=== PATIENT | male | born 1935 | race Caucasian/White ===

== ENCOUNTER 2020-06-23 11:45 | Inpatient (IN) | payer MEDICARE, OTHER ==
[2020-06-23] VITALS (8 sets, daily range): BP systolic 133–160; BP diastolic 86–96
[~2020-06-23] VITALS: Ht 180 cm; Wt 123.2 kg
[2020-06-23] MEDS ORDERED: ONDANSETRON 4 MG (ZOFRAN) ORAL DISSOLVE TAB PO PRN (13:45)
[2020-06-23] MEDS ORDERED: polyethylene glycoL POWDER 17 GM (MIRALAX) PACK PO PRN (13:45)
[2020-06-23] MEDS ORDERED: MELATONIN 3 MG TABLET PO PRN (13:45)
[2020-06-23] MEDS ORDERED: ONDANSETRON 4 MG/2 ML (SDV) Z0FRAN IV PRN (13:45)
[2020-06-23] MEDS ORDERED: ACETAMINOPHEN 325 MG TABLET PO PRN (13:45)
[2020-06-23] MEDS ORDERED: ENOXAPARIN 100 MG/1 ML (LOVENOX) SYR SC SCH (13:45)
[2020-06-23] MEDS ORDERED: BISACODYL 10 MG SUPP (DULCOLAX) PR PRN (13:45)
[2020-06-23] MEDS ORDERED: ANTACID SUSP 30 ML UDC (MYLANTA) PO PRN (13:45)
[2020-06-23] MEDS: inSUlin ASPART (NovoLOG) 1 UNIT/0.01 ML (CHARGE PER UNIT) SC SCH ×2 (17:46→21:38)
[2020-06-23] MEDS ORDERED: ENOXAPARIN 100 MG/1 ML (LOVENOX) SYR ONE (18:20)
--- NOTE | 2020-06-23 22:02 | NUR ---
ASSUMED CARE OF PT AT THIS TIME. REPORT FROM [facility] ICU NURSE.
[2020-06-24] VITALS: BP 162/84
[2020-06-24] MEDS ORDERED: ENOXAPARIN 100 MG/1 ML (LOVENOX) SYR SC SCH (00:15)
[2020-06-24 03:19] LABS: BASOPHILS % (AUTO) 0 % (0-10); EOSINOPHILS % (AUTO) 0 % (0-10); HEMATOCRIT 43 % (40-54); HEMOGLOBIN 14.2 g/dL (13.3-17.7); LYMPHOCYTES # (AUTO) 0.9 10^3/uL (1.0-4.0); LYMPHOCYTES % (AUTO) 12 % (12-44); MEAN CORPUSCULAR HEMOGLOBIN 30 pg (25-34); MEAN CORPUSCULAR HGB CONC 33 g/dL (32-36); MEAN CORPUSCULAR VOLUME 91 fL (80-99); MONOCYTES # (AUTO) 0.6 10^3/uL (0.0-1.0); MONOCYTES % (AUTO) 8 % (0-12); NEUTROPHILS # (AUTO) 6.2 10^3/uL (1.8-7.8); NEUTROPHILS % (AUTO) 80 % (42-75); PLATELET COUNT 178 10^3/uL (130-400); WHITE BLOOD COUNT 7.8 10^3/uL (4.3-11.0)
[2020-06-24 03:28] LABS: ALBUMIN 3.3 GM/DL (3.2-4.5)
[2020-06-24 03:29] LABS: POTASSIUM 4.6 MMOL/L (3.6-5.0)
[2020-06-24 03:30] LABS: CALCIUM 8.3 MG/DL (8.5-10.1)
[2020-06-24 03:31] LABS: TOTAL PROTEIN 6.3 GM/DL (6.4-8.2)
[2020-06-24 03:33] LABS: BILIRUBIN,TOTAL 0.5 MG/DL (0.1-1.0)
[2020-06-24 03:35] LABS: CREATININE SERUM 1.45 MG/DL (0.60-1.30)
[2020-06-24 04:00] VITALS: BP 152/76
[2020-06-24] MEDS: dexAMETHasone 6 MG TAB (DECADRON) PO SCH (05:33)
[2020-06-24] MEDS: inSUlin ASPART (NovoLOG) 1 UNIT/0.01 ML (CHARGE PER UNIT) SC SCH ×4 (05:36→21:06)
[2020-06-24 08:00] VITALS: BP 156/77
--- NOTE | 2020-06-24 10:30 | NUR ---
DR RAINEY NOTIFIED OF PT URINATING 120ML OF DARK YADIRA URINE, DR RAINEY TO PLACE ORDERS FOR FLUIDS.
[2020-06-24 12:00] VITALS: BP 146/76
--- NOTE | 2020-06-24 12:49 | History & Physical-Hospitalist ---
History of Present Illness HPI/Chief Complaint Pt is an 84yoCM with a PMH of HLD, HTN, NIDDMII who presented to OSH due weakness and a fall. He states that his weakness has been going on for 2-3 weeks but denies any cough or fever. He does have a decreased appetite. He states his whole family is positive for COVID. Rapid test here confirms that he is as well. He states he's feeling ok this morning just weak. Source: patient Exam Limitations: no limitations Date Seen 06/24/20 Time Seen by a Provider: 12:44 Attending Physician Alessandra Diaz MD PCP Jordi Pena DO Referring Physician Date of Admission Jun 23, 2020 at 17:10 Home Medications & Allergies Home Medications Reviewed patient Home Medication Reconciliation performed by pharmacy medication reconciliations management technician and/or nursing. Patients Allergies have been reviewed. Allergies Allergies Coded Allergies levofloxacin (Verified Allergy, Unknown, 06/23/20) Past Hrpklcd-Qvksqq-Kfibub Hx Past Med/Social Hx: Reviewed Nursing Past Med/Soc Hx Patient Social History Marrital Status: Alcohol Use: Denies Use Recreational Drug Use: No Smoking Status: Never a Smoker Physical Abuse Screen: No Sexual Abuse: No Recent Foreign Travel: No Contact w/other who traveled: No Recent Hopitalizations: No Recent Infectious Disease Expo: Yes ( et son COVID19+) Immunizations Up To Date Pediatric: No Date of Pneumonia Vaccine: Jun 23, 2018 Date of Influenza Vaccine: Jun 13, 2020 Seasonal Allergies Seasonal Allergies: No Past Medical History Currently Using CPAP: Yes Currently Using BIPAP: No Cardiac: Hypertension Sexually Transmitted Disease: No HIV/AIDS: No Genitourinary: Benign Prostatic Hyperpl, Prostate Problems Musculoskeletal: Back Injury, Chronic Back Pain Endocrine: Diabetes, Non-Insulin dep Are Your Blood Sugars Over 250: No Loss of Vision: Denies Cancer: Prostate Did You Recieve Any Treatments: Yes What Type of Treatment Did You: Surgical Intervention History of Blood Disorders: No Adverse Reaction to Blood Swann: No Family History Reviewed Nursing Family Hx No Pertinent Family Hx Review of Systems Constitutional: No chills, No fever; malaise, weakness EENTM: No hoarseness, No nose congestion, No throat pain Respiratory: No cough, No dyspnea on exertion, No short of breath Cardiovascular: No chest pain, No edema Gastrointestinal: No abdominal pain, No constipation, No diarrhea; loss of appetite; No nausea, No vomiting Musculoskeletal: no symptoms reported Skin: no symptoms reported Psychiatric/Neurological: No Symptoms Reported Physical Exam Physical Exam Vital Signs Vital Signs - First Documented 06/23/20 06/23/20 17:09 17:30 Temp 36.7 Pulse 66 Resp 18 B/P (MAP) 133/90 (104) Pulse Ox 98 O2 Delivery Room Air Capillary Refill : Height, Weight, BMI Height: '" Weight: lbs. oz. kg; 36.72 BMI Method: General Appearance: No Apparent Distress, Chronically ill HEENT: PERRL/EOMI, Moist Mucous Membranes Neck: Normal Inspection, Supple Respiratory: Lungs Clear, No Accessory Muscle Use, No Respiratory Distress Cardiovascular: Regular Rate, Rhythm, No Murmur Gastrointestinal: Normal Bowel Sounds, Non Tender, Soft Neurologic/Psychiatric: Alert, Oriented x3 Skin: Normal Color, Warm/Dry Results Results/Procedures Labs Laboratory Tests 06/24/20 03:05 Patient resulted labs reviewed. Assessment/Plan Admission Diagnosis COVID19 Admission Status: Inpatient Order (span 2 midnights) Reason for Inpatient Admission: see below Assessment and Plan COVID19 Weakness Cotinue decadron PT/OT IS Not on oxygen and unclear start of symptoms so not a candidate for Remdesivir Will start IVF due to poor oral intake Elevated troponin Ekg ordered ASA Cardiology consulted, appreciate recs HTN HLD Resume home meds NIDDMII SSI, anticipate higher BS while here due to steroids DVT ppx: Lovenox Diagnosis/Problems Diagnosis/Problems (1) COVID-19 (2) Advanced age (3) Elevated troponin (4) At high risk for complication of COVID-19 Clinical Quality Measures DVT/VTE Risk/Contraindication: Risk Factor Score Per Nursin RFS Level Per Nursing on Admit: 4+=Very High KIRIT RAINEY MD Jun 24, 2020 12:49
[2020-06-24] MEDS ORDERED: ASPIRIN 325 MG (5 GR) TABLET PO ONE (13:00)
[2020-06-24] MEDS ORDERED: amLODIPine 5 MG (NORVASC) TAB PO ONE (13:00)
[2020-06-24] MEDS: ENOXAPARIN 300 MG/3 ML (LOVENOX) MULTI-DOSE VIAL SQ SCH (13:49)
[2020-06-24] MEDS: LACTATED RINGERS 1,000 ML IV SCH (13:50)
--- NOTE | 2020-06-24 14:45 | Physical Therapy Evaluation ---
PT Evaluation-General Medical Diagnosis Admission Date Jun 23, 2020 at 17:10 Medical Diagnosis: Covid 19 positive Onset Date: Jun 23, 2020 Therapy Diagnosis Therapy Diagnosis: debility/weakness Precautions Precautions/Isolations: Airborne Isolation, Contact Isolation, Droplet Isolation, Fall Prevention Referral Physician: Ray Reason for Referral: Evaluation/Treatment Medical History Current History Admit secondary to inability to care for self at home due to Covid 19 and weakness Reviewed History: Yes Social History Home: Single Level Current Living Status: Spouse Entry Into Home: Stairs With Railing PT Steps Into Home: 3 Prior Prior Level of Function SCALE: Activities may be completed with or without assistive devices. 1-Xkkivbzxqj-iqxhprs completes the activity by him/herself with no assistance from a helper. 5-Set-up or Clean-up Assistance-helper sets up or cleans up; patient completes activity. Girard assists only prior to or following the activity. 4-Supervision or Touching Assistance-helper provides verbal cues and/or touching/steadying and/or contact guard assistance as patient completes activi ty. Assistance may be provided throughout the activity or intermittently. 3-Partial/Moderate Assistance-helper does LESS THAN HALF the effort. Girard lifts, holds or supports trunk or limbs, but provides less than half the effort. 2-Substantial/Maximal Assistance-helper does MORE THAN HALF the effort. Girard lifts or holds trunk or limbs and provides more than half the effort. 7-Nngpksmbk-qfxdoh does ALL the effort. Patient does none of the effort to complete the activity. Or, the assistance of 2 or more helpers is required for the patient to complete the activity. If activity was not attempted, code reason: 7-Patient Refused. 9-Not Applicable-not attempted and the patient did not perform the activity before the current illness, exacerbation or injury. 10-Not Attempted due to Environmental Limitations-(lack of equipment, weather restraints, etc.). 88-Not Attempted due to Medical Conditions or Safety Concerns. Bed Mobility: 6 Transfers (B,C,W/C): 6 Gait: 6 Stairs: 6 Indoor Mobility (Ambulation): Independent Stairs: Independent Prior Devices Use: Other-see list below Prior Device Use: cane PT Evaluation-Current Subjective Patient agrees to PT. Objective Attachments: IV ROM/Strength ROM Lower Extremities bilateral LE WFL Strength Lower Extremities 3-/5 grossly bilateral LE Integumentary/Posture Integumentary refer to nursing notes Bowel Incontinence: No Bladder Incontinence: No Posture flexed knee and trunk posture due to weakness Neuromuscular (Tone, Coordination, Reflexes) diminished coordination due to weakness Sensory Vision: Functional Hearing: Functional Sensation Right Lower Extremit: Intact Sensation Left Lower Extremity: Intact Transfers Roll Left to Right (QC): 2 Sit to Lying (QC): 2 Lying to Sitting/Side of Bed(Q: 2 Sit to Stand (QC): 2 Chair/Obf-hr-Rnefg Xfer(QC): 2 Toilet Transfer (QC): 2 Gait Does the Patient Walk?: Yes Mode of Locomotion: Both Anticipated Mode of Locomotion: Walk Walk 10 feet (QC): 3 Walk 50 ft with 2 Turns(QC): 88 Walk 150 ft (QC): 88 Distance: 15' x 2 Gait Assistive Device: FWW Comments/Gait Description slow, shuffle gait sequence Balance Sitting Static: Normal Sitting Dynamic: Normal Standing Static: Fair Standing Dynamic: Fair Assessment/Needs 84 y.o. male, will benefit from skilled PT to address functional strength and mobility to improve current LOF to safely return to home with spouse at maximum LOF. 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[employer] Goals Usp Goals PT Usp Goals Time Frame: Jul 13, 2020 Roll Left & Right (QC): 5 Sit to Lying (QC): 5 Lying-Sitting on Side/Bed(QC): 5 Sit to Stand (QC): 5 Chair/Xcl-sw-Mzknj Xfer(QC): 5 Toilet Transfer (QC): 5 Does the Patient Walk: Yes Walk 10 feet (QC): 5 Walk 50ft with 2 Turns (QC): 5 Walk 150 ft (QC): 5 PT Plan Problem List Problem List: Activity Tolerance, Functional Strength, Safety, Balance, Gait, Transfer, Bed Mobility Treatment/Plan Treatment Plan: Continue Plan of Care Treatment Plan: Bed Mobility, Education, Functional Activity Chanel, Functional Strength, Gait, Safety, Therapeutic Exercise, Transfers Treatment Duration: Jul 13, 2020 Frequency: 6 times per week Estimated Hrs Per Day: .5 hour per day Patient and/or Family Agrees t: Yes Time/GCodes Time In: 1400 Time Out: 1415 Total Billed Treatment Time: 15 Total Billed Treatment 1 visit EVMod 15 min JEN MAN PT Jun 24, 2020 14:45
--- NOTE | 2020-06-24 15:26 | Occupational Therapy Eval ---
OT Evaluation-General/PLF Medical Diagnosis Admission Date Jun 23, 2020 at 17:10 Medical Diagnosis: Covid 19 positive Onset Date: Jun 23, 2020 Therapy Diagnosis Therapy Diagnosis: Weakness Precautions Precautions/Isolations: Airborne Isolation, Contact Isolation, Droplet Isolation, Fall Prevention Referral Physician: Ray Referral Reason: Activity Tolerance, Self Care, Evaluation/Treatment, Strengthening/ROM Medical History Pertinent Medical History: HTN Current History Pt. weak and came to ED after fall. States that his family is COVID +, and he was tested as well. Pt. positive. Reviewed History: Yes Social History Home: Single Level Current Living Status: Spouse Entry Into Home: Stairs With Railing Steps Into Home: 3 ADL-Prior Level of Function SCALE: Activities may be completed with or without assistive devices. 5-Sowhdhjdru-euaxaff completes the activity by him/herself with no assistance from a helper. 5-Set-up or Clean-up Assistance-helper sets up or cleans up; patient completes activity. Dewy Rose assists only prior to or following the activity. 4-Supervision or Touching Assistance-helper provides verbal cues and/or touching/steadying and/or contact guard assistance as patient completes activity. Assistance may be provided throughout the activity or intermittently. 3-Partial/Moderate Assistance-helper does LESS THAN HALF the effort. Dewy Rose lifts, holds or supports trunk or limbs, but provides less than half the effort. 2-Substantial/Maximal Assistance-helper does MORE THAN HALF the effort. Dewy Rose lifts or holds trunk or limbs and provides more than half the effort. 3-Tvcejsxaj-cgqsdu does ALL the effort. Patient does none of the effort to complete the activity. Or, the assistance of 2 or more helpers is required for the patient to complete the activity. If activity was not attempted, code reason: 7-Patient Refused. 9-Not Applicable-not attempted and the patient did not perform the activity before the current illness, exacerbation or injury. 10-Not Attempted due to Environmental Limitations-(lack of equipment, weather restraints, etc.). 88-Not Attempted due to Medical Conditions or Safety Concerns. ADL PLOF Comments Pt. states that he was independent with daily tasks. Self Care: Independent Functional Cognition: Independent DME/Equipment: Bath Chair, Shower DME/Equipment Comments Pt. uses a cane at home. OT Current Status Subjective No pain reported. Pt. states that he feels weak. Appearance Pt. in bathroom when OT came into room. Mental Status/Objective Patient Orientation: Person, Place ADL-Treatment On/Off Footwear (QC): 2 Toileting Hygiene (QC): 2 Other Treatments OT/PT co-treat due to level of weakness and need of skilled assist x 2. PT facilitated transfer from toilet. Pt. requires mod/max x 2. OT cleansed fahad area, as pt. unable to do this himself. OT facilitated ADL skills. Pt. requires min x 2 to ambulate to bed. Transferred stand-sit with min assist. Max assist sit-supine. All needs met. Education OT Patient Education: Correct positioning, Modified ADL techniques, Progress toward Goal/Update tx plan, Purpose of tx/functional activities, Reviewed precautions, Rehab process, Transfer techniques Teaching Recipient: Patient Teaching Methods: Demonstration, Discussion Response to Teaching: Verbalize Understanding, Return Demonstration OT Short Term Goals Short Term Goals Time Frame: Jul 01, 2020 Eatin Oral hygiene: 4 Toileting hygiene: 3 Shower/bathe self: 3 Upper body dressin Lower body dressin Putting on/taking off footwear: 3 OT Office Helper Goals Nursing Home Goals Time Frame: Jul 08, 2020 Eating (QC): 6 Oral Hygiene (QC): 6 Toileting Hygiene (QC): 6 Shower/Bathe Self (QC): 4 Upper Body Dressing (QC): 6 Lower Body Dressing (QC): 4 On/Off Footwear (QC): 4 Additional Goals: 1-Demonstrate ADL Tasks, 2-Verbalize Understanding, 3- ImproveStrength/Chanel 1=Demonstrate adherence to instructed precautions during ADL tasks. 2=Patient will verbalize/demonstrate understanding of assistive devices/modifications for ADL. 3=Patient will improve strength/tolerance for activity to enable patient to perform ADL's. OT Education/Plan Problem List/Assessment Assessment: Decreased Activ Tolerance, Dependent Transfers, Impaired Bed Mobi lity, Impaired Funct Balance, Impaired I ADL's, Impaired Self-Care Skills Discharge Recommendations Plan/Recommendations: Continue POC Therapy Discharge Recommendati: Home & Family, Post Acute OT Equpiment Recommendations-D/C: Hip Kit Treatment Plan/Plan of Care Treatment,Training & Education: Yes Patient would benefit from OT for education, treatment and training to promote independence in ADL's, mobility, safety and/or upper extremity function for ADL's. Plan of Care: ADL Retraining, Functional Mobility, UE Funct Exercise/Act Treatment Duration: Jul 08, 2020 Frequency: 5 times per week Estimated Hrs Per Day: .25 hour per day Agreement: Yes Rehab Potential: Fair Time/GCodes Start Time: 14:00 Stop Time: 14:15 Total Time Billed (hr/min): 15 Billed Treatment Time 1, LAZ HAIDER OT Jun 24, 2020 15:26
[2020-06-24 15:30] VITALS: BP 157/85
--- NOTE | 2020-06-24 15:53 | Progress Note - Cardiology ---
Cardiology SOAP Progress Note Objective: I&O/Vital Signs 06/24/20 06/24/20 06/24/20 06/24/20 04:00 06:41 08:00 08:52 Temp 36.0 Pulse 59 60 68 Resp 18 20 B/P (MAP) 152/76 (101) 156/77 (103) Pulse Ox 94 95 O2 Delivery Room Air Room Air Room Air 06/24/20 06/24/20 12:00 12:41 Temp 36.3 Pulse 60 60 Resp 18 B/P (MAP) 146/76 (99) Pulse Ox 96 O2 Delivery Room Air 06/24/20 00:00 Intake Total 0 ml Balance 0 ml Results/Procedures: Labs Laboratory Tests 06/23/20 18:30: Lactic Acid Level 1.71, Troponin I 0.059H, Procalcitonin 0.22H 06/23/20 19:00: Coronavirus 2019 (CARLOS) PositiveH 06/23/20 21:32: Glucometer 185H 06/24/20 03:05: Troponin I 0.062H, White Blood Count 7.8, Red Blood Count 4.71, Hemoglobin 14.2, Hematocrit 43, Mean Corpuscular Volume 91, Mean Corpuscular Hemoglobin 30, Mean Corpuscular Hemoglobin Concent 33, Red Cell Distribution Width 13.7, Platelet Count 178, Mean Platelet Volume 10.0, Immature Granulocyte % (Auto) 0, Neutrophils (%) (Auto) 80H, Lymphocytes (%) (Auto) 12, Monocytes (%) (Auto) 8, Eosinophils (%) (Auto) 0, Basophils (%) (Auto) 0, Neutrophils # (Auto) 6.2, Lymphocytes # (Auto) 0.9L, Monocytes # (Auto) 0.6, Eosinophils # (Auto) 0.0, Basophils # (Auto) 0.0, Immature Granulocyte # (Auto) 0.0, Sodium Level 137, Potassium Level 4.6, Chloride Level 107, Carbon Dioxide Level 18L, Anion Gap 12, Blood Urea Nitrogen 24H, Creatinine 1.45H, Estimat Glomerular Filtration Rate 46, BUN/Creatinine Ratio 17, Glucose Level 239H, Calcium Level 8.3L, Corrected Calcium 8.9, Total Bilirubin 0.5, Aspartate Amino Transf (AST/SGOT) 50H, Alanine Aminotransferase (ALT/SGPT) 31, Alkaline Phosphatase 88, Total Protein 6.3L, Albumin 3.3 06/24/20 05:33: Glucometer 192H 06/24/20 11:18: Glucometer 294H A/P: Assessment: In an effort to reduce transmission of COVID-19, I have not personally seen the patient. I discussed his case with Dr Bell this afternoon and have relied on the history that she took and her physical exam The patient has not been experiencing any angina The ECG exhibits a stable, paced ventricular rhythm Troponin is only minimally elevated. It was done as a routine test, not for any suspicion of MO. The minimal elevation is likely related to COVID infection and probably mild, transient hypoxemia (minimal, type 2 MO) We recommend continuation of aspirin (given his h/o DM II, a CAD equivalent) and of anticoagulation with enoxaparin or apixaban There do not appear to be any acute cardiac issues at this time. We will standby for any acute cardiac issues. JOVANI FALCON MD FACP FAC CCDS Jun 24, 2020 15:53
[2020-06-24] MEDS ORDERED: TMSL.4C PO (16:50)
[2020-06-24] MEDS ORDERED: ASPI-999 PO (16:50)
[2020-06-24] MEDS ORDERED: POTA20TA15 PO (16:50)
[2020-06-24] MEDS ORDERED: GLIM2TAB4 PO (16:50)
[2020-06-24] MEDS ORDERED: SPIR25TA5 PO (16:50)
[2020-06-24] MEDS ORDERED: LEVO75TA6 PO (16:50)
[2020-06-24] MEDS ORDERED: PRAV20TA3 PO (16:50)
[2020-06-24] MEDS ORDERED: AMLO5TAB9 PO (16:50)
[2020-06-24] MEDS ORDERED: RIVA15TA PO (16:52)
--- NOTE | 2020-06-24 16:53 | NUR ---
MED LIST UPDATED WITH EXTERNAL MED LIST AND NEELAM VIA PHONE.
[2020-06-24 17:12] LABS: BILIRUBIN,URINE NEGATIVE (NEGATIVE); CLARITY,URINE TURBID; COLOR,URINE YELLOW; GLUCOSE, URINE (UA) NEGATIVE (NEGATIVE); KETONES,URINE NEGATIVE (NEGATIVE); LEUKOCYTE ESTERASE ,URINE NEGATIVE (NEGATIVE); NITRITE,URINE NEGATIVE (NEGATIVE); PROTEIN,URINE 2+ (NEGATIVE)
[2020-06-24 17:18] LABS: AMORPHOUS SEDIMENT,UR LARGE AMOR URATES /LPF; BACTERIA,URINE NEGATIVE /HPF
[2020-06-24] MEDS: TAMSULOSIN 0.4 MG (FLOMAX) CAP PO SCH (17:36)
[2020-06-24 19:45] VITALS: BP 138/78
[2020-06-25] VITALS: BP 155/79
[2020-06-25] MEDS: LACTATED RINGERS 1,000 ML IV SCH ×3 (00:02→18:55)
[2020-06-25] MEDS: ENOXAPARIN 300 MG/3 ML (LOVENOX) MULTI-DOSE VIAL SQ SCH ×2 (00:02→12:32)
[2020-06-25 04:33] VITALS: BP 162/82
[2020-06-25] MEDS: inSUlin ASPART (NovoLOG) 1 UNIT/0.01 ML (CHARGE PER UNIT) SC SCH ×4 (06:00→20:54)
[2020-06-25] MEDS: LEVOTHYROXINE 75 MCG (LEVOTHROID) TABLET PO SCH (06:01)
[2020-06-25] MEDS: dexAMETHasone 6 MG TAB (DECADRON) PO SCH (06:01)
[2020-06-25 08:00] VITALS: BP 169/89
[2020-06-25] MEDS ORDERED: ASPIRIN 325 MG (5 GR) TABLET PO SCH (09:00)
[2020-06-25] MEDS: amLODIPine 5 MG (NORVASC) TAB PO SCH (10:03)
--- NOTE | 2020-06-25 10:31 | Physical Therapy Daily Note ---
PT Daily Note-Current Subjective Patient agrees to PT (OT/PT cotreat) Mental Status Patient Orientation: Normal For Age Attachments: IV Transfers SCALE: Activities may be completed with or without assistive devices. 4-Yisbdqnejo-lrqyyyu completes the activity by him/herself with no assistance from a helper. 5-Set-up or Clean-up Assistance-helper sets up or cleans up; patient completes activity. [place]on assists only prior to or following the activity. 4-Supervision or Touching Assistance-helper provides verbal cues and/or touching/steadying and/or contact guard assistance as patient completes activity. Assistance may be provided throughout the activity or intermittently. 3-Partial/Moderate Assistance-helper does LESS THAN HALF the effort. Wishon lifts, holds or supports trunk or limbs, but provides less than half the effort. 2-Substantial/Maximal Assistance-helper does MORE THAN HALF the effort. Wishon lifts or holds trunk or limbs and provides more than half the effort. 5-Qpgmakztq-ktaaqy does ALL the effort. Patient does none of the effort to complete the activity. Or, the assistance of 2 or more helpers is required for the patient to complete the activity. If activity was not attempted, code reason: 7-Patient Refused. 9-Not Applicable-not attempted and the patient did not perform the activity before the current illness, exacerbation or injury. 10-Not Attempted due to Environmental Limitations-(lack of equipment, weather restraints, etc.). 88-Not Attempted due to Medical Conditions or Safety Concerns. Roll Left & Right (QC): 3 Sit to Lying (QC): 3 Lying to Sitting/Side of Bed(Q: 3 Sit to Stand (QC): 3 Chair/Tab-fk-Jajrk Xfer(QC): 3 Toilet Transfer (QC): 3 PT addressed bed mobility and transfers while OT addressed toileting/cleansing Gait Training Distance: 15' Walk 10 feet (QC): 4 Gait Assistive Device: FWW Patient demonstrates a safe and functional gait sequence, however, is limited due to confinement to room and BM pressure Assessment Patient is on RA and did not show any sign of respiratory issues. PT to increase activity as tolerated by patient. PT [facility] Goals [facility] Goals PT [facility] Goals Time Frame: Jul 13, 2020 Roll Left & Right (QC): 5 Sit to Lying (QC): 5 Lying-Sitting on Side/Bed(QC): 5 Sit to Stand (QC): 5 Chair/Dvd-ha-Oswhp Xfer(QC): 5 Toilet Transfer (QC): 5 Does the Patient Walk: Yes Walk 10 feet (QC): 5 Walk 50ft with 2 Turns (QC): 5 Walk 150 ft (QC): 5 PT Plan Treatment/Plan Treatment Plan: Continue Plan of Care Treatment Plan: Bed Mobility, Education, Functional Activity Chanel, Functional Strength, Gait, Safety, Therapeutic Exercise, Transfers Treatment Duration: Jul 13, 2020 Frequency: 6 times per week Estimated Hrs Per Day: .5 hour per day Patient and/or Family Agrees t: Yes Time/GCodes Time In: 945 Time Out: 1010 Total Billed Treatment Time: 25 Total Billed Treatment 1 visit FA x 2 25 min JEN MAN PT Jun 25, 2020 10:31
--- NOTE | 2020-06-25 10:33 | Occupational Ther Daily Note ---
OT Current Status-Daily Note Subjective Pt alert, lying in bed. Pt agrees to therapy. No c/o pain at this time. Mental Status/Objective Patient Orientation: Person, Place, Time, Situation Attachments: IV, Telemetry ADL-Treatment OT/PT co-treat due to level of weakness and need of skilled assist x 2. PT facilitated transfer from bed to BSC. Pt. requires mod x 2 for supine to EOB. CGA to transfer using FWW from bed to BSC and assist to manipulate IV pole/tubing. Pt able cleansed fahad area and buttocks, though unable to have BM. Pt ambulating around room requested to use BSC for BM again. Left in care of nrsg. OT facilitated ADL skills. All needs met. Therapy Code Descriptions/Definitions Functional Howard Measure: 0=Not Assessed/NA 4=Minimal Assistance 1=Total Assistance 5=Supervision or Setup 2=Maximal Assistance 6=Modified Howard 3=Moderate Assistance 7=Complete IndependenceSCALE: Activities may be completed with or without assistive devices. 2-Tgjebxzmde-smmcjdd completes the activity by him/herself with no assistance from a helper. 5-Set-up or Clean-up Assistance-helper sets up or cleans up; patient completes activity. [place] assists only prior to or following the activity. 4-Supervision or Touching Assistance-helper provides verbal cues and/or touching/steadying and/or contact guard assistance as patient completes activity. Assistance may be provided throughout the activity or intermittently. 3-Partial/Moderate Assistance-helper does LESS THAN HALF the effort. [place] lifts, holds or supports trunk or limbs, but provides less than half the effort. 2-Substantial/Maximal Assistance-helper does MORE THAN HALF the effort. [place] lifts or holds trunk or limbs and provides more than half the effort. 7-Rwjypldhv-ptbndq does ALL the effort. Patient does none of the effort to co mplete the activity. Or, the assistance of 2 or more helpers is required for the patient to complete the activity. If activity was not attempted, code reason: 7-Patient Refused. 9-Not Applicable-not attempted and the patient did not perform the activity before the current illness, exacerbation or injury. 10-Not Attempted due to Environmental Limitations-(lack of equipment, weather restraints, etc.). 88-Not Attempted due to Medical Conditions or Safety Concerns. OT Short Term Goals Short Term Goals Time Frame: Jul 01, 2020 Eatin Oral hygiene: 4 Toileting hygiene: 3 Shower/bathe self: 3 Upper body dressin Lower body dressin Putting on/taking off footwear: 3 OT Type Disk Quality Control Supervisor Goals Type Disk Quality Control Supervisor Goals Time Frame: Jul 08, 2020 Eating (QC): 6 Oral Hygiene (QC): 6 Toileting Hygiene (QC): 6 Shower/Bathe Self (QC): 4 Upper Body Dressing (QC): 6 Lower Body Dressing (QC): 4 On/Off Footwear (QC): 4 Additional Goals: 1-Demonstrate ADL Tasks, 2-Verbalize Understanding, 3-Impr oveStrength/Chanel 1=Demonstrate adherence to instructed precautions during ADL tasks. 2=Patient will verbalize/demonstrate understanding of assistive devices/modifications for ADL. 3=Patient will improve strength/tolerance for activity to enable patient to perform ADL's. OT Education/Plan Problem List/Assessment Assessment: Decreased Activ Tolerance, Decreased Safety Aware, Decreased UE Strength, Impaired Bed Mobility, Impaired Self-Care Skills Discharge Recommendations Plan/Recommendations: Continue POC Treatment Plan/Plan of Care Patient would benefit from OT for education, treatment and training to promote independence in ADL's, mobility, safety and/or upper extremity function for ADL's. Plan of Care: ADL Retraining, Functional Mobility, UE Funct Exercise/Act Treatment Duration: Jul 08, 2020 Frequency: 5 times per week Estimated Hrs Per Day: .25 hour per day Agreement: Yes Rehab Potential: Fair Time/GCodes Start Time: 09:45 Stop Time: 10:10 Total Time Billed (hr/min): 25 Billed Treatment Time 1 visit-ADL 1 (15 min) FA 1 (10 min) FIDEL ROTH Jun 25, 2020 10:33
[2020-06-25 12:00] VITALS: BP 155/80
--- NOTE | 2020-06-25 13:00 | Progress Note - Hospitalist ---
Subjective HPI/CC On Admission Date Seen by Provider: Jun 25, 2020 Time Seen by Provider: 12:56 Pt is an 84yoCM with a PMH of HLD, HTN, NIDDMII who presented to OSH due weakness and a fall. He states that his weakness has been going on for 2-3 weeks but denies any cough or fever. He does have a decreased appetite. He states his whole family is positive for COVID. Rapid test here confirms that he is as well. He states he's feeling ok this morning just weak. Subjective/Events-last exam Pt reports feeling better today. Eating more. Still quite weak. Discussed discharge planning and possible need for SNF but he declines. Focused Exam Lactate Level 06/23/20 18:30: Lactic Acid Level 1.71 Objective Exam Vital Signs Vital Signs Date Time Temp Pulse Resp B/P (MAP) Pulse Ox O2 Delivery O2 Flow Rate FiO2 06/25/20 16:08 36.4 59 20 149/82 (104) 97 Room Air Capillary Refill : General Appearance: No Apparent Distress, Chronically ill, Obese Respiratory: Lungs Clear, No Respiratory Distress Cardiovascular: Regular Rate, Rhythm, No Murmur Neurologic/Psychiatric: Alert, Oriented x3 Results/Procedures Lab Patient resulted labs reviewed. Assessment/Plan Assessment and Plan Assess & Plan/Chief Complaint COVID19 Weakness Cotinue decadron PT/OT- did better with PT today than yesterday IS Not on oxygen and unclear start of symptoms so not a candidate for Remdesivir Continue IVF until appetite improved Elevated troponin ASA and Lovenox Cardiology consulted, appreciate recs, no interventions at this time HTN HLD Resume home meds NIDDMII SSI, anticipate higher BS while here due to steroids DVT ppx: Lovenox Diagnosis/Problems Diagnosis/Problems (1) COVID-19 (2) Advanced age (3) Elevated troponin (4) At high risk for complication of COVID-19 Clinical Quality Measures DVT/VTE Risk/Contraindication: Risk Factor Score Per Nursin RFS Level Per Nursing on Admit: 4+=Very High KIRIT RAINEY MD Jun 25, 2020 13:00
--- NOTE | 2020-06-25 13:34 | NUR ---
"RD ASSESSMENT PMHx: HLD; HTN; DM; BPH; CA(prostate) PT INTERACTION: Note pt is COVID-19 positive, per chart review. Note attempted to call pt for nutrition assessment, but pt did not answer. Note all information gathered for nutrition assessment is per chart review. Note avg PO intake 50% x2meal. Note last BM was 06/25, and pt currently on bowel regimen of miralax PRN; and bisacodyl PRN. Note unable to determine recent wt hx. Note unable to determine current level of DM management, and unable to determine recent HbA1c. ABNORMAL NUTRITION-RELATED LAB VALUES LOW: Ca 8.3; Pro 6.3; HIGH: BUN 24; cr 1.45; glu 239; AST 50 Est. kcal needs: 1825 kcal | 15 kcal/kg Est. Pro needs: 122 g Pro | 1.0 g Pro/kg PES STATEMENT: Inadequate oral intake (NI-2.1) related to loss of appetite as evidenced by chart review | avg PO intake 50% x2meal INTERVENTION: Note pt currently on Regular diet. Would recommend switching to consistent CHO diet, as pt has elevated blood glucose levels. Pt may benefit from nutrition supplementation if PO intake declines. Did not offer diet education on DM management d/t COVID isolation. Will continue to follow and reassess as pt needs, intake, and status change. Felisa Mark, MS RD LD"
[2020-06-25 16:08] VITALS: BP 149/82
[2020-06-25] MEDS: TAMSULOSIN 0.4 MG (FLOMAX) CAP PO SCH (16:53)
[2020-06-25 20:02] VITALS: BP 177/84
[2020-06-25] MEDS: RIVAROXABAN 15 MG TABLET (XARELTO) PO SCH (20:54)
[2020-06-25] MEDS: SIMvastatin 10 MG (ZOCOR) TAB PO SCH (20:54)
--- NOTE | 2020-06-25 23:52 | NUR ---
Update on pt at this time: PT is doing well and states no complaints respiratory sierra. PT is complying with Incentive Spirometer, and has gotten up to the bathroom twice this shift to use the restroom with 1 BM. PT gets up X 1 assist with gait belt and walker, and has some dribbling hesitancy when ambulating to the bathroom. PT is resting in bed comftorably, needs are met, and pt uses call light approporiately. PT is displaying no shortness of breath and has displayed no intermittent cough for me during this shift. Lung sounds sound clear bilaterally anterior/posteriorly, just a little diminished. Will continue to monitor and provide care as ordered.
[2020-06-26 00:22] VITALS: BP 158/85
[2020-06-26 04:03] VITALS: BP 159/80
[2020-06-26] MEDS: LACTATED RINGERS 1,000 ML IV SCH ×2 (05:27→16:39)
[2020-06-26] MEDS: inSUlin ASPART (NovoLOG) 1 UNIT/0.01 ML (CHARGE PER UNIT) SC SCH ×4 (06:17→21:01)
[2020-06-26] MEDS: LEVOTHYROXINE 75 MCG (LEVOTHROID) TABLET PO SCH (06:17)
[2020-06-26] MEDS: dexAMETHasone 6 MG TAB (DECADRON) PO SCH (06:17)
[2020-06-26 08:00] VITALS: BP 145/73
[2020-06-26] MEDS: ASPIRIN 81 MG CHEW (CHILDREN'S ASA) PO SCH (08:55)
[2020-06-26] MEDS: SPIRONOLACTONE 25 MG (ALDACTONE) TAB PO SCH (08:55)
[2020-06-26] MEDS: amLODIPine 5 MG (NORVASC) TAB PO SCH (08:55)
[2020-06-26] MEDS: KCL 20 MEQ TAB (K-DUR) PO SCH (08:55)
--- NOTE | 2020-06-26 10:13 | Physical Therapy Daily Note ---
PT Daily Note-Current Subjective Patient in bed pre tx, agrees to PT, has no complaints of pain, says his breathing is maybe a little better. PT donned appropriate PPE before going into room. Appearance Patient in recliner post tx with nurse call, phone, tray, all needs met. Mental Status Patient Orientation: Person, Place, Situation Attachments: IV Transfers SCALE: Activities may be completed with or without assistive devices. 0-Snczgjeovb-vedcmuw completes the activity by him/herself with no assistance from a helper. 5-Set-up or Clean-up Assistance-helper sets up or cleans up; patient completes activity. [place] assists only prior to or following the activity. 4-Supervision or Touching Assistance-helper provides verbal cues and/or to uching/steadying and/or contact guard assistance as patient completes activity. Assistance may be provided throughout the activity or intermittently. 3-Partial/Moderate Assistance-helper does LESS THAN HALF the effort. [place] lifts, holds or supports trunk or limbs, but provides less than half the effort. 2-Substantial/Maximal Assistance-helper does MORE THAN HALF the effort. [place] lifts or holds trunk or limbs and provides more than half the effort. 9-Hlccsacqt-fxmwgc does ALL the effort. Patient does none of the effort to complete the activity. Or, the assistance of 2 or more helpers is required for the patient to complete the activity. If activity was not attempted, code reason: 7-Patient Refused. 9-Not Applicable-not attempted and the patient did not perform the activity before the current illness, exacerbation or injury. 10-Not Attempted due to Environmental Limitations-(lack of equipment, weather restraints, etc.). 88-Not Attempted due to Medical Conditions or Safety Concerns. Roll Left & Right (QC): 3 Lying to Sitting/Side of Bed(Q: 2 Sit to Stand (QC): 3 max assist for supine to sit, min assist for sit to stand, cues for hand placement and safety Gait Training Distance: 20' Walk 10 feet (QC): 4 Gait Persons Needed: 1 Gait Assistive Device: FWW CGA, slow but steady ambulation, no SOB Exercises Seated Therapy Exercises: Ankle pumps, Long arc quads Seated Reps: 20 Treatments bed mobility and transfers, ambulation, LE exercise Assessment Current Status: Fair Progress no SOB with tx, needs significant assist for supine to sit PT Prison Goals Prison Goals PT Prison Goals Time Frame: Jul 13, 2020 Roll Left & Right (QC): 5 Sit to Lying (QC): 5 Lying-Sitting on Side/Bed(QC): 5 Sit to Stand (QC): 5 Chair/Yzr-le-Scght Xfer(QC): 5 Toilet Transfer (QC): 5 Does the Patient Walk: Yes Walk 10 feet (QC): 5 Walk 50ft with 2 Turns (QC): 5 Walk 150 ft (QC): 5 PT Plan Problem List Problem List: Activity Tolerance, Functional Strength, Safety, Balance, Gait, Transfer, Bed Mobility, ROM Treatment/Plan Treatment Plan: Continue Plan of Care Treatment Plan: Bed Mobility, Education, Functional Activity Chanel, Functional Strength, Gait, Safety, Therapeutic Exercise, Transfers Treatment Duration: Jul 13, 2020 Frequency: 6 times per week Estimated Hrs Per Day: .5 hour per day Patient and/or Family Agrees t: Yes Safety Risks/Education Patient Education: Gait Training, Transfer Techniques, Correct Positioning, Safety Issues Teaching Recipient: Patient Teaching Methods: Demonstration, Discussion Response to Teaching: Reinforcement Needed Time/GCodes Time In: 0950 Time Out: 1002 Total Billed Treatment Time: 12 Total Billed Treatment 1 visit FA 12PAT WATERS PT Jun 26, 2020 10:13
--- NOTE | 2020-06-26 11:22 | NUR ---
IRF Evaluation Received phone call from Dr. Bell regarding consideration of COVID positive patients. It was explained the patient must be afebrile for three consecutive days, without the use of fever reducing medication(s), as well as be 10 days out from onset of symptoms. Dr. Bell reports the patient had a fever the day prior. Will continue to follow. Thank you for this referral.
[2020-06-26 12:00] VITALS: BP 172/89
--- NOTE | 2020-06-26 12:49 | Progress Note - Hospitalist ---
Subjective HPI/CC On Admission Date Seen by Provider: Jun 26, 2020 Time Seen by Provider: 12:47 Pt is an 84yoCM with a PMH of HLD, HTN, NIDDMII who presented to OSH due weakness and a fall. He states that his weakness has been going on for 2-3 weeks but denies any cough or fever. He does have a decreased appetite. He states his whole family is positive for COVID. Rapid test here confirms that he is as well. He states he's feeling ok this morning just weak. Subjective/Events-last exam Pt reports feeling well today. Still weak. Working on getting stronger. Discussed potential for rehab here if needs more intense therapy and he is open to the idea. Focused Exam Lactate Level 06/23/20 18:30: Lactic Acid Level 1.71 Objective Exam Vital Signs Vital Signs Date Time Temp Pulse Resp B/P (MAP) Pulse Ox O2 Delivery O2 Flow Rate FiO2 06/26/20 12:00 37.0 51 20 172/89 (116) 96 Room Air Capillary Refill : General Appearance: No Apparent Distress, WD/WN Respiratory: Lungs Clear, No Respiratory Distress Cardiovascular: Regular Rate, Rhythm, No Murmur Neurologic/Psychiatric: Alert, Oriented x3 Results/Procedures Lab Patient resulted labs reviewed. Assessment/Plan Assessment and Plan Assess & Plan/Chief Complaint COVID19 Weakness Cotinue decadron PT/OT- continues to improve, may be an IRU candidate, will consult for eval IS Not on oxygen and unclear start of symptoms so not a candidate for Remdesivir Continue IVF until appetite improved Elevated troponin ASA and Lovenox Cardiology consulted, appreciate recs, no interventions at this time HTN HLD Continue home meds NIDDMII SSI, anticipate higher BS while here due to steroids DVT ppx: Lovenox Diagnosis/Problems Diagnosis/Problems (1) COVID-19 (2) Advanced age (3) Elevated troponin (4) At high risk for complication of COVID-19 Clinical Quality Measures DVT/VTE Risk/Contraindication: Risk Factor Score Per Nursin RFS Level Per Nursing on Admit: 4+=Very High KIRIT RAINEY MD Jun 26, 2020 12:49
--- NOTE | 2020-06-26 13:09 | Occupational Ther Daily Note ---
OT Current Status-Daily Note Subjective Pt alert, sitting in recliner. Pt agrees to therapy. No c/o pain at this time. Mental Status/Objective Patient Orientation: Person, Place, Time, Situation Attachments: IV, Ventilator ADL-Treatment Therapy Code Descriptions/Definitions Functional [place] Measure: 0=Not Assessed/NA 4=Minimal Assistance 1=Total Assistance 5=Supervision or Setup 2=Maximal Assistance 6=Modified [place] 3=Moderate Assistance 7=Complete IndependenceSCALE: Activities may be completed with or without assistive devices. 6-Jodklixlqo-xepamkp completes the activity by him/herself with no assistance from a helper. 5-Set-up or Clean-up Assistance-helper sets up or cleans up; patient completes activity. [place] assists only prior to or following the activity. 4-Supervision or Touching Assistance-helper provides verbal cues and/or touching/steadying and/or contact guard assistance as patient completes activity. Assistance may be provided throughout the activity or intermittently. 3-Partial/Moderate Assistance-helper does LESS THAN HALF the effort. [place] lifts, holds or supports trunk or limbs, but provides less than half the effort. 2-Substantial/Maximal Assistance-helper does MORE THAN HALF the effort. [place] lifts or holds trunk or limbs and provides more than half the effort. 9-Lrkxxrelb-gfvire does ALL the effort. Patient does none of the effort to complete the activity. Or, the assistance of 2 or more helpers is required for the patient to complete the activity. If activity was not attempted, code reason: 7-Patient Refused. 9-Not Applicable-not attempted and the patient did not perform the activity before the current illness, exacerbation or injury. 10-Not Attempted due to Environmental Limitations-(lack of equipment, weather restraints, etc.). 88-Not Attempted due to Medical Conditions or Safety Concerns. Other Treatment Pt agrees to B UE exercises against gravity. Pt has decreased B shldr ROM, ~110*. Pt completed 4 B UE exercises 3 sets 5 reps to increase activity tolerance and strength for daily functional tasks. Pt the completed 3 sit <--> stands with min A. Pt then requested to use BSC. Pt transferred to [facility] with CGA using FWW. Pt able to manipulate clothing. Pt requested to sit for awhile. Call light placed and nrsg notified of pt's position. All needs met in room. OT Short Term Goals Short Term Goals Time Frame: Jul 01, 2020 Eatin Oral hygiene: 4 Toileting hygiene: 3 Shower/bathe self: 3 Upper body dressin Lower body dressin Putting on/taking off footwear: 3 OT Long-Term Goals Long-Term Goals Time Frame: Jul 08, 2020 Eating (QC): 6 Oral Hygiene (QC): 6 Toileting Hygiene (QC): 6 Shower/Bathe Self (QC): 4 Upper Body Dressing (QC): 6 Lower Body Dressing (QC): 4 On/Off Footwear (QC): 4 Additional Goals: 1-Demonstrate ADL Tasks, 2-Verbalize Understanding, 3- ImproveStrength/Chanel 1=Demonstrate adherence to instructed precautions during ADL tasks. 2=Patient will verbalize/demonstrate understanding of assistive devices/modifications for ADL. 3=Patient will improve strength/tolerance for activity to enable patient to perform ADL's. OT Education/Plan Problem List/Assessment Assessment: Decreased Activ Tolerance, Decreased UE Strength, Impaired Self- Care Skills, Restricted Funct UE ROM Discharge Recommendations Plan/Recommendations: Continue POC Treatment Plan/Plan of Care Patient would benefit from OT for education, treatment and training to promote independence in ADL's, mobility, safety and/or upper extremity function for ADL's. Plan of Care: ADL Retraining, Functional Mobility, UE Funct Exercise/Act Treatment Duration: Jul 08, 2020 Frequency: 5 times per week Estimated Hrs Per Day: .25 hour per day Agreement: Yes Rehab Potential: Fair Time/GCodes Start Time: 11:31 Stop Time: 11:54 Total Time Billed (hr/min): 23 Billed Treatment Time 1 visit-EX 1 (15 min) FA 1 (8 min) FIDEL ROTH Jun 26, 2020 13:09
[2020-06-26 15:27] VITALS: BP 177/82
--- NOTE | 2020-06-26 16:02 | NUR ---
CM/SS attempted to call the patient's room phone number this a.m. The patient did not answer. BRIDGET/SS following with physician and Alize JONES for plan of care and discharge planning.
[2020-06-26] MEDS: TAMSULOSIN 0.4 MG (FLOMAX) CAP PO SCH (16:39)
[2020-06-26 19:48] VITALS: BP 171/84
[2020-06-26] MEDS: SIMvastatin 10 MG (ZOCOR) TAB PO SCH (21:01)
[2020-06-26] MEDS: RIVAROXABAN 15 MG TABLET (XARELTO) PO SCH (21:01)
[2020-06-27] VITALS: BP 184/96
[2020-06-27] MEDS: LACTATED RINGERS 1,000 ML IV SCH (02:40)
[2020-06-27 04:00] VITALS: BP 133/84
[2020-06-27 06:08] LABS: MEAN PLATELET VOLUME 10.2 fL (9.0-12.2); WHITE BLOOD COUNT 11.9 10^3/uL (4.3-11.0)
[2020-06-27 06:21] LABS: CHLORIDE 105 MMOL/L (98-107); POTASSIUM 4.5 MMOL/L (3.6-5.0); SODIUM 139 MMOL/L (135-145)
[2020-06-27] MEDS: LEVOTHYROXINE 75 MCG (LEVOTHROID) TABLET PO SCH (06:21)
[2020-06-27] MEDS: dexAMETHasone 6 MG TAB (DECADRON) PO SCH (06:21)
[2020-06-27 06:22] LABS: CALCIUM 8.4 MG/DL (8.5-10.1)
[2020-06-27 06:23] LABS: GLUCOSE 226 MG/DL (70-105)
[2020-06-27 06:24] LABS: CARBON DIOXIDE 23 MMOL/L (21-32)
[2020-06-27 06:27] LABS: CREATININE SERUM 1.06 MG/DL (0.60-1.30); GFR ESTIMATED > 60
[2020-06-27 06:28] LABS: BUN/CREATININE RATIO 21
[2020-06-27] MEDS: inSUlin ASPART (NovoLOG) 1 UNIT/0.01 ML (CHARGE PER UNIT) SC SCH ×4 (07:11→20:06)
[2020-06-27 08:00] VITALS: BP 174/96
[2020-06-27] MEDS: amLODIPine 5 MG (NORVASC) TAB PO SCH (08:21)
[2020-06-27] MEDS: SPIRONOLACTONE 25 MG (ALDACTONE) TAB PO SCH (08:21)
[2020-06-27] MEDS: KCL 20 MEQ TAB (K-DUR) PO SCH (08:21)
[2020-06-27] MEDS: ASPIRIN 81 MG CHEW (CHILDREN'S ASA) PO SCH (08:21)
--- NOTE | 2020-06-27 11:33 | Progress Note - Hospitalist ---
Subjective HPI/CC On Admission Date Seen by Provider: Jun 27, 2020 Time Seen by Provider: 11:30 Pt is an 84yoCM with a PMH of HLD, HTN, NIDDMII who presented to OSH due weakness and a fall. He states that his weakness has been going on for 2-3 weeks but denies any cough or fever. He does have a decreased appetite. He states his whole family is positive for COVID. Rapid test here confirms that he is as well. He states he's feeling ok this morning just weak. Subjective/Events-last exam Pt reports doing better today. Weakness improving. Eating breakfast. No complaints. RN states that he was up more yesterday. Objective Exam Vital Signs Vital Signs Date Time Temp Pulse Resp B/P (MAP) Pulse Ox O2 Delivery O2 Flow Rate FiO2 06/27/20 08:15 Room Air 06/27/20 08:00 36.5 56 20 174/96 (122) 96 Capillary Refill : Less Than 3 Seconds General Appearance: No Apparent Distress, Chronically ill Respiratory: Lungs Clear, No Respiratory Distress Cardiovascular: Regular Rate, Rhythm, No Murmur Neurologic/Psychiatric: Alert, Oriented x3, Normal Mood/Affect Results/Procedures Lab Laboratory Tests 06/27/20 05:50 Patient resulted labs reviewed. Assessment/Plan Assessment and Plan Assess & Plan/Chief Complaint COVID19 Weakness Continue decadron PT/OT- continues to improve, may be an IRU candidate, consulted for evaluation but may improve and be able to go home even with HH IS Not on oxygen and unclear start of symptoms so not a candidate for Remdesivir DC fluids as eating more Elevated troponin ASA and Lovenox Cardiology consulted, appreciate recs, no interventions at this time HTN HLD Continue home meds NIDDMII SSI, anticipate higher BS while here due to steroids DVT ppx: Lovenox Diagnosis/Problems Diagnosis/Problems (1) COVID-19 (2) Advanced age (3) Elevated troponin (4) At high risk for complication of COVID-19 Clinical Quality Measures DVT/VTE Risk/Contraindication: Risk Factor Score Per Nursin RFS Level Per Nursing on Admit: 4+=Very High KIRIT RAINEY MD Jun 27, 2020 11:33
--- NOTE | 2020-06-27 11:53 | Occupational Ther Daily Note ---
OT Current Status-Daily Note Subjective Pt alert, sitting in recliner. Pt agrees to therapy. No c/o pain. Mental Status/Objective Patient Orientation: Person, Place, Time, Situation Attachments: IV ADL-Treatment Pt agrees to sponge bath. Declines oral care. Pt requires set up for bathing. Pt has slow movements and slight problem solving difficulties though follows direction well. Pt able to reach all areas except feet. Assist to don/doff socks and cleanse feet. PT came into room and assisted pt with sit to stand dur ing ADLs. Pt able to reach fahad area and buttocks, [place] assisted to make sure thoroughly cleansed while PT assisted pt in standing. Pt left in care of PT. All needs met. Therapy Code Descriptions/Definitions Functional [place] Measure: 0=Not Assessed/NA 4=Minimal Assistance 1=Total Assistance 5=Supervision or Setup 2=Maximal Assistance 6=Modified [place] 3=Moderate Assistance 7=Complete IndependenceSCALE: Activities may be completed with or without assistive devices. 2-Ufnlimthpu-rwtwtxn completes the activity by him/herself with no assistance from a helper. 5-Set-up or Clean-up Assistance-helper sets up or cleans up; patient completes activity. [place] assists only prior to or following the activity. 4-Supervision or Touching Assistance-helper provides verbal cues and/or touching/steadying and/or contact guard assistance as patient completes activity. Assistance may be provided throughout the activity or intermittently. 3-Partial/Moderate Assistance-helper does LESS THAN HALF the effort. [place] lifts, holds or supports trunk or limbs, but provides less than half the effort. 2-Substantial/Maximal Assistance-helper does MORE THAN HALF the effort. [place] lifts or holds trunk or limbs and provides more than half the effort. 7-Hztywltxl-wfygiy does ALL the effort. Patient does none of the effort to complete the activity. Or, the assistance of 2 or more helpers is required for the patient to complete the activity. If activity was not attempted, code reason: 7-Patient Refused. 9-Not Applicable-not attempted and the patient did not perform the activity before the current illness, exacerbation or injury. 10-Not Attempted due to Environmental Limitations-(lack of equipment, weather restraints, etc.). 88-Not Attempted due to Medical Conditions or Safety Concerns. Shower/Bathe Self (QC): 3 On/Off Footwear: 2 OT Short Term Goals Short Term Goals Time Frame: Jul 01, 2020 Eatin Oral hygiene: 4 Toileting hygiene: 3 Shower/bathe self: 3 Upper body dressin Lower body dressin Putting on/taking off footwear: 3 OT [employer] Consultant Goals [employer] Consultant Goals Time Frame: Jul 08, 2020 Eating (QC): 6 Oral Hygiene (QC): 6 Toileting Hygiene (QC): 6 Shower/Bathe Self (QC): 4 Upper Body Dressing (QC): 6 Lower Body Dressing (QC): 4 On/Off Footwear (QC): 4 Additional Goals: 1-Demonstrate ADL Tasks, 2-Verbalize Understanding, 3-ImproveStrength/Chanel 1=Demonstrate adherence to instructed precautions during ADL tasks. 2=Patient will verbalize/demonstrate understanding of assistive devices/modifications for ADL. 3=Patient will improve strength/tolerance for activity to enable patient to per form ADL's. OT Education/Plan Problem List/Assessment Assessment: Decreased Activ Tolerance, Decreased UE Strength, Impaired Funct Balance, Impaired Self-Care Skills Discharge Recommendations Plan/Recommendations: Continue POC Treatment Plan/Plan of Care Patient would benefit from OT for education, treatment and training to promote independence in ADL's, mobility, safety and/or upper extremity function for ADL's. Plan of Care: ADL Retraining, Functional Mobility, UE Funct Exercise/Act Treatment Duration: Jul 08, 2020 Frequency: 5 times per week Estimated Hrs Per Day: .25 hour per day Agreement: Yes Rehab Potential: Fair Time/GCodes Start Time: 10:58 Stop Time: 11:23 Total Time Billed (hr/min): 25 Billed Treatment Time 1 visit-ADL 2 (28 min) FIDEL ROTH Jun 27, 2020 11:53
[2020-06-27 12:00] VITALS: BP 147/84
--- NOTE | 2020-06-27 13:15 | Physical Therapy Daily Note ---
PT Daily Note-Current Subjective Patient reports he is feeling better and stronger. Agrees to PT. Mental Status Patient Orientation: Normal For Age Attachments: IV Transfers SCALE: Activities may be completed with or without assistive devices. 3-Ytawaeetqy-qcfklcu completes the activity by him/herself with no assistance from a helper. 5-Set-up or Clean-up Assistance-helper sets up or cleans up; patient completes activity. [place] assists only prior to or following the activity. 4-Supervision or Touching Assistance-helper provides verbal cues and/or touching/steadying and/or contact guard assistance as patient completes activity. Assistance may be provided throughout the activity or intermittently. 3-Partial/Moderate Assistance-helper does LESS THAN HALF the effort. [place] lifts, holds or supports trunk or limbs, but provides less than half the effort. 2-Substantial/Maximal Assistance-helper does MORE THAN HALF the effort. [place] lifts or holds trunk or limbs and provides more than half the effort. 1-Gefzkqxkw-yabsxz does ALL the effort. Patient does none of the effort to complete the activity. Or, the assistance of 2 or more helpers is required for the patient to complete the activity. If activity was not attempted, code reason: 7-Patient Refused. 9-Not Applicable-not attempted and the patient did not perform the activity before the current illness, exacerbation or injury. 10-Not Attempted due to Environmental Limitations-(lack of equipment, weather restraints, etc.). 88-Not Attempted due to Medical Conditions or Safety Concerns. Sit to Stand (QC): 5 PT addressed sit to stand and standing balance with FWW while OT address ADL's Gait Training Does the Patient Walk?: Yes Distance: 125' Walk 10 feet (QC): 5 Walk 50 ft with 2 Turns(QC): 5 Gait Assistive Device: FWW safe and functional with no deviation Exercises Seated Therapy Exercises: Ankle pumps, Long arc quads, Hip flexion Seated Reps: 15 Assessment Patient improving with treatment plan. Patient continues to fatigue quickly with activity. Patient remained up in recliner with needs met. PT Fci Goals Fci Goals PT Fci Goals Time Frame: Jul 13, 2020 Roll Left & Right (QC): 5 Sit to Lying (QC): 5 Lying-Sitting on Side/Bed(QC): 5 Sit to Stand (QC): 5 Chair/Rzl-ex-Zvbyi Xfer(QC): 5 Toilet Transfer (QC): 5 Does the Patient Walk: Yes Walk 10 feet (QC): 5 Walk 50ft with 2 Turns (QC): 5 Walk 150 ft (QC): 5 PT Plan Treatment/Plan Treatment Plan: Continue Plan of Care Treatment Plan: Bed Mobility, Education, Functional Activity Chanel, Functional Strength, Gait, Safety, Therapeutic Exercise, Transfers Treatment Duration: Jul 13, 2020 Frequency: 6 times per week Estimated Hrs Per Day: .5 hour per day Patient and/or Family Agrees t: Yes Time/GCodes Time In: 1115 Time Out: 1124 Total Billed Treatment Time: 9 Total Billed Treatment 1 visit FA 9 min JEN MAN PT Jun 27, 2020 13:15
--- NOTE | 2020-06-27 14:51 | NUR ---
IRF Determination: Accepted Upon further review of EMR patient has not had a fever within past 3 days, without the use of fever reducing medications. ARU remains capped at 8, due to nurse staffing. A bed is not anticipated to come available until Wednesday, July 01. SW/Dr. Bell indicate patient will likely return home, prior to bed coming available.
--- NOTE | 2020-06-27 15:22 | NUR ---
CM/SS visited with patient's son. The patient gave the physician verbal consent for this sw to contact family. CM/SS contacted the patient's son Peter to discuss discharge plans. Home: Peter reports that the patient lives at home with his Milly. The patient's daughter lives right across the road with her , Peter lives 5 to 10 minutes away, and the Nephew lives one mile away and working from home. The patient's son states that prior to hospitalization the patient was independent but did still need assistance with putting on his socks and shoes at baseline. The patient did not use a walker. Equipment: The patient has a front wheeled walker, shower chair, and grab bars. The patient had a CPAP machine but refused to wear it. Home Health: The patient has had home health in the past but Peter cannot remember the agency name. CM/SS discussed home health for time of discharge. They state they would prefer home health vs outpatient physical therapy. CM/SS will discuss home health at time of discharge. CM/SS will continue to follow.
[2020-06-27 15:48] VITALS: BP 187/96
[2020-06-27] MEDS: TAMSULOSIN 0.4 MG (FLOMAX) CAP PO SCH (17:35)
[2020-06-27 19:20] VITALS: BP 189/91
[2020-06-27] MEDS: RIVAROXABAN 15 MG TABLET (XARELTO) PO SCH (20:05)
[2020-06-27] MEDS: SIMvastatin 10 MG (ZOCOR) TAB PO SCH (20:05)
[2020-06-28] VITALS: BP 182/93
[2020-06-28 04:00] VITALS: BP 160/84
[2020-06-28] MEDS: dexAMETHasone 6 MG TAB (DECADRON) PO SCH (06:06)
[2020-06-28] MEDS: LEVOTHYROXINE 75 MCG (LEVOTHROID) TABLET PO SCH (06:06)
[2020-06-28] MEDS: inSUlin ASPART (NovoLOG) 1 UNIT/0.01 ML (CHARGE PER UNIT) SC SCH (06:42)
[2020-06-28 08:00] VITALS: BP 175/91
[2020-06-28] MEDS: SPIRONOLACTONE 25 MG (ALDACTONE) TAB PO SCH (08:57)
[2020-06-28] MEDS: KCL 20 MEQ TAB (K-DUR) PO SCH (08:57)
[2020-06-28] MEDS: ASPIRIN 81 MG CHEW (CHILDREN'S ASA) PO SCH (08:57)
[2020-06-28] MEDS: amLODIPine 5 MG (NORVASC) TAB PO SCH (08:57)
--- NOTE | 2020-06-28 10:23 | D/C HH Face to Face Order ---
D/C Face to Face Orders Instructions for Patient Via [facility], Patient Instructions/FollowUp: Please continue to take your medications as written. Please follow up with your PCP in the next week to follow up this hospital stay. Physician to follow Patient: Dr Pena Discharge Diet for Home: Cardiac Diet Patient Data-Allergies,Ht & Wt Patient Allergies: Coded Allergies: levofloxacin (Verified Allergy, Unknown, 06/23/20) Home Health Need/Face to Face Date of Face to Face: Jun 28, 2020 Clinical Findings: Generalized weakness and fatigue I have seen Pt [id number]: Yes Discharged To: Home Diagnosis/Conditions: COVID19 Patient is Homebound due to: Muscle weakness Homebound Status Due to the above stated illness, injury or surgical procedure (medical condition or diagnosis) and associated clinical findings, the patient is homebound because of his/her inability to leave home except with aid of a supportive device and/or person AND leaving the home requires a considerable and taxing effort or is medically contraindicated. Pt req the following assistanc: Aid of another person, Walker Home Health Nursing Orders Home Health Services Order: Nursing Services, Intake Coordinator-Evaluate & Treat, Physical Therapy-Evaluate & Treat Therapy Orders Therapy Orders: OT (must have SN or PT order), Physical Therapy Therapy Specific Orders: Eval assistive deivces, Teach enviro modifications/safety, Gait training, Increase strength/endurance Certify Stmt I certify that this patient is under my care and that I, a nurse practitioner or a physician; a dental front office assistant working with me, had a face to face encounter that - meets the physician face to face encounter requirements with this patient as dated. KIRIT RAINEY MD Jun 28, 2020 10:23
--- NOTE | 2020-06-28 10:32 | NUR ---
CM/SS finalized discharge. Plan: Patient will discharge to home today 06/28 with home health. Home Health: CM/SS contacted the patient's son to inform him of home health options. CM/SS explained that the home health agency's have been busy. He reports he would like this sw to call and find which one could come out soonest. CM/SS contacted [facility] to make a referral. They report they can start care on WednesdayJune 30. CM/SS faxed home health and face to face orders. BRIDGET/SS contacted the patient's son Peter to inform him of patient's discharge. He verbalized understanding and states they will pick the patient up today at 12:00 p.m. CM/SS informed him that the home health is set up. He verbalized understanding. No further needs at this time.
--- NOTE | 2020-06-28 11:26 | Discharge Summary ---
Diagnosis/Chief Complaint Date of Admission Jun 23, 2020 at 17:10 Date of Discharge Discharge Date: Jun 28, 2020 Admission Diagnosis COVID19 Primary Care Jordi Pena DO Discharge Diagnosis (1) COVID-19 (2) Advanced age (3) Elevated troponin (4) At high risk for complication of COVID-19 Discharge Summary Discharge Physical Exam Allergies: Coded Allergies: levofloxacin (Verified Allergy, Unknown, 06/23/20) Vitals & I&Os Vital Signs Date Time Temp Pulse Resp B/P (MAP) Pulse Ox O2 Delivery O2 Flow Rate FiO2 06/28/20 08:30 Room Air 06/28/20 08:00 36.0 68 18 175/91 (119) 95 Hospital Course Labs (last 24 hrs) Laboratory Tests 06/27/20 12:01: Glucometer 297H 06/27/20 15:51: Glucometer 253H 06/27/20 19:21: Glucometer 285H 06/28/20 06:39: Glucometer 247H 06/28/20 11:02: Glucometer 278H Patient resulted labs reviewed. Pending Labs Laboratory Tests 06/28/20 06:39: Glucometer 247 06/28/20 11:02: Glucometer 278 Discharge Home Medications: Active Scripts Active Reported Xarelto (Rivaroxaban) 15 Mg Tablet 15 Mg PO HS Aspirin 81 Mg Tab.chew 81 Mg PO Glimepiride 2 Mg Tablet 2 Mg PO BID WITH MEALS Potassium Chloride 20 Meq Tab.er.prt 20 Meq PO DAILY Levothyroxine Sodium 75 Mcg Tablet 75 Mcg PO DAILY Pravastatin Sodium 20 Mg Tablet 20 Mg PO HS Flomax (Tamsulosin HCl) 0.4 Mg Cap 0.4 Mg PO HS Amlodipine Besylate 5 Mg Tablet 5 Mg PO DAILY Spironolactone 25 Mg Tablet 25 Mg PO DAILY Instructions to patient/family Please see electronic discharge instructions given to patient. Clinical Quality Measures DVT/VTE Risk/Contraindication: Risk Factor Score Per Nursin RFS Level Per Nursing on Admit: 4+=Very High KIRIT RAINEY MD Jun 28, 2020 11:26
[2020-06-28 12:00] VITALS: BP 168/88
--- NOTE | 2020-06-28 12:01 | Physical Therapy Progress Note ---
Therapy Progress Note PT visited with patient and he reports he feels comfortable going home with family and home health. Patient has AD prior. Patient dismissing to home on this date. 1 visit JEN MAN PT Jun 28, 2020 12:01
== END 2020-06-28 13:00 | disposition home health service (06) | DRG 179 ==
LOC: ICU 17:10 → 4TH 21:49
PROVIDERS: ADMIT Internal Medicine; ATTEND Internal Medicine
DX: U07.1 COVID-19 (principal); R63.0 Anorexia; R54 Age-related physical debility; I10 Essential (primary) hypertension; E11.9 Type 2 diabetes mellitus without complications; Z66 Do not resuscitate; E78.5 Hyperlipidemia, unspecified; R79.89 Other specified abnormal findings of blood chemistry; M54.9 Dorsalgia, unspecified; Z85.46 Personal history of malignant neoplasm of prostate; Z91.81 History of falling
CPT/HCPCS: 36415; 80048; 80053; 81000; 82962; 83605; 84145; 84484; 85025; 85027; 86850; 86900; 86901; 87635; 93005